=== PATIENT | female | born 1990 | race American Indian/Alaskan Native ===

== ENCOUNTER 2018-01-23 21:33 | Emergency (ER) | payer SELFPAY ==
[2018-01-23] MEDS ORDERED: ASPIRIN PO ONE (21:58)
[2018-01-23 22:39] LABS: Basophils # (Auto) 0.1 K/mm3 (0.0-0.1); Basophils % (Auto) 0.9 % (0.0-1.8); Eosinophils # (Auto) 0.1 K/mm3 (0.0-0.4); Eosinophils % (Auto) 1.5 % (0.0-4.3); Hematocrit 39.2 % (30.3-42.9); Hemoglobin 12.5 gm/dl (10.1-14.3); Lymphocytes # (Auto) 1.7 K/mm3 (1.2-5.4); Lymphocytes % (Auto) 22.1 % (13.4-35.0); Mean Corpuscular HGB Conc 32 % (30-34); Mean Corpuscular Volume 80 fl (79-97); Monocytes # (Auto) 0.5 K/mm3 (0.0-0.8); Monocytes % (Auto) 6.4 % (0.0-7.3); Platelet Count 226 K/mm3 (140-440); Red Blood Count 4.91 M/mm3 (3.65-5.03); Red Cell Distribution Width 15.5 % (13.2-15.2)
[2018-01-23 22:40] LABS: Mean Corpuscular Hemoglobin 26 pg (28-32)
[2018-01-23 22:49] LABS: BUN/Creatinine Ratio 15; Blood Urea Nitrogen 9 mg/dL (7-17); Calcium 8.4 mg/dL (8.4-10.2); Hemolysis Index 10
[2018-01-24] MEDS ORDERED: TORADOL IM ONE (00:37)
--- NOTE | 2018-01-24 01:01 | Emergency Department Report ---
ED Chest Pain HPI - General Chief Complaint: Chest Pain Stated Complaint: CHEST PAIN Time Seen by Provider: 01/24/18 00:32 Source: patient Mode of arrival: Ambulatory Limitations: No Limitations - History of Present Illness Initial Comments: 27-year-old female presents to the emergency department, driving himself in to be seen, with complaint of some left-sided chest pain with radiation towards the left upper back that began around 4 PM this afternoon. She did not take anything for her symptoms prior presentation. It is associated with some intermittent shortness of breath but she denies any nausea, vomiting, fever or diaphoresis. She is an occasional tobacco smoker but denies any illicit drug use or abuse. Recent travel or sick contacts at home. She does not have a primary care physician. She denies any other past medical history. She has a family history of early cardiac disease and MT in her mother who had a MT at age 47. Severity scale (0 -10): 6 - Related Data Allergies Allergy/AdvReac Type Severity Reaction Status Date / Time No Known Allergies Allergy Verified 01/24/18 00:36 Heart Score - HEART Score History: Slightly suspicious EKG: Normal Age: < 45 Risk factors: 1-2 risk factors Troponin: < normal limit HEART Score: 1 - Critical Actions Critical Actions: 0-3 pts:0.9-1.7%risk of adverse cardiac event.Candidate for discharge ED Review of Systems ROS: Stated complaint: CHEST PAIN Other details as noted in HPI Comment: All other systems reviewed and negative Constitutional: denies: chills, fever Eyes: denies: eye pain, eye discharge, vision change ENT: denies: ear pain, throat pain Respiratory: shortness of breath. denies: cough Cardiovascular: chest pain. denies: edema, syncope Gastrointestinal: denies: abdominal pain, nausea, diarrhea Genitourinary: denies: urgency, dysuria, discharge Musculoskeletal: back pain. denies: arthralgia Skin: denies: rash, lesions Neurological: denies: headache, weakness, paresthesias ED Past Medical Hx - Past Medical History Previous Medical History?: No - Surgical History Past Surgical History?: No - Social History Smoking Status: Current Every Day Smoker Substance Use Type: None ED Physical Exam - General Limitations: No Limitations ED Course Vital Signs 01/23/18 01/23/18 01/24/18 21:36 21:53 00:33 Temperature 99.1 F 99.1 F 99.3 F Pulse Rate 96 H 96 H 83 Respiratory 18 18 16 Rate Blood Pressure 132/78 132/78 Blood Pressure 113/67 [Right] O2 Sat by Pulse 98 98 98 Oximetry 01/24/18 01/24/18 01/24/18 00:34 00:51 01:21 Temperature Pulse Rate Respiratory 16 16 14 Rate Blood Pressure Blood Pressure [Right] O2 Sat by Pulse 98 Oximetry 01/24/18 02:27 Temperature 99.1 F Pulse Rate 88 Respiratory 16 Rate Blood Pressure Blood Pressure 119/67 [Right] O2 Sat by Pulse Oximetry MARNIE score - Marnie Score Age > 65: (0) No Aspirin use within the Past 7 Days: (0) No 3 or more CAD Risk Factors: (0) No 2 or more Angina events in past 24 hrs: (0) No Known CAD with more than 50% Stenosis: (0) No Elevated Cardiac Markers: (0) No ST Deviation Greater than 0.5mm: (0) No MARNIE Score: 0 ED Medical Decision Making - Lab Data Result diagrams: 01/23/18 22:11 01/23/18 22:11 - EKG Data -: EKG Interpreted by Dc EKG shows normal: sinus rhythm, axis, intervals, QRS complexes, ST-T waves Rate: normal - EKG Data When compared to previous EKG there are: previous EKG unavailable Interpretation: normal EKG Critical care attestation.: If time is entered above; I have spent that time in minutes in the direct care of this critically ill patient, excluding procedure time. ED Disposition Clinical Impression: Chest pain Qualifiers: Chest pain type: unspecified Qualified Code(s): R07.9 - Chest pain, unspecified Back pain Qualifiers: Back pain location: thoracic back pain Chronicity: unspecified Back pain laterality: left Qualified Code(s): M54.6 - Pain in thoracic spine Disposition: DC-01 TO HOME OR SELFCARE Is pt being admited?: No Condition: Stable Instructions: Chest Pain (ED) Additional Instructions: Return to the emergency department if you change her mind about getting the CT angiography done or with any worsening of your symptoms or any acute distress. Please follow up with a primary care physician in the next few days. I have given you a referral for a local defensive line coach, Dr. Banuelos, to follow up regarding your chest pains. Referrals: PRIMARY CAREMD [Primary Care Provider] - 3-5 Days ANTONIA BANUELOS MD [Staff Physician] - 3-5 Days Forms: AMA Form Time of Disposition: 03:41
--- NOTE | 2018-01-24 01:16 | XRay Report ---
FINAL REPORT EXAM: XR CHEST ROUTINE 2V HISTORY: Chest pain TECHNIQUE: PA and lateral views of the chest were obtained. PRIORS: None. FINDINGS: There are no focal consolidations to suggest pneumonia. No large pleural effusion. No pneumothorax. Cardiac silhouette and mediastinal structures are unremarkable. No acute osseous abnormality identified. Multilevel thoracic degenerative changes. IMPRESSION: No radiographic evidence of acute cardiopulmonary disease.
[2018-01-24 02:27] VITALS: BP 119/67
[2018-01-24 02:59] LABS: HCG Qualitative,Urine Negative (Negative)
== END 2018-01-24 03:52 | disposition home or self-care (01) ==
LOC: ED 21:33
DX: R07.89 Other chest pain (principal); M54.6 Pain in thoracic spine; R06.02 Shortness of breath; F17.200 Nicotine dependence, unspecified, uncomplicated
CPT/HCPCS: 36415; 71046; 80048; 81025; 84484; 85025; 85379; 93005; 93010; 96372; 99284; J1885